=== PATIENT | female | born 1985 | race Caucasian/White ===

== ENCOUNTER 2016-05-09 21:30 | Emergency (ER) | payer OTHER ==
[2016-05-09] MEDS ORDERED: ACETAMINOPHEN TAB 650MG DOSE (2X325MG) As Ordered ONE (22:16)
--- NOTE | 2016-05-09 22:29 | EDDOCDS ---
Physician Documentation [facility] Name: Caridad Duke Age: 30 yrs Sex: Female : 1985 Arrival Date: 05/09/2016 Time: 21:30 Bed 11 Private MD: Other - Complete Info On Cds Disposition: 05/09/16 22:04 Discharged to Home/Self Care. Impression: Unspecified sprain of left foot. - Condition is Stable. - Discharge Instructions: Elastic Bandage and RICE, Foot Sprain. - Medication Reconciliation, Local Pharmacy Hours form. - Follow up: Private Physician; When: 4 - 5 days; Reason: Recheck today's complaints, Continuance of care. - Problem is new. - Symptoms are unchanged. - Notes: elevate foot limit ambulation Historical: - Allergies: no known allergies; - Home Meds: 1. Prilosec 40 mg Oral cpDR 1 cap once daily 2. Vitamin Oral tab 1 tab once daily - PMHx: none; - PSHx: none; - Social history: Smoking status: Patient states was never smoker of tobacco. No barriers to communication noted, The patient speaks fluent Lao. - Family history: Not pertinent. - : The pt / caregiver states he / she is not on anticoagulants. Home medication list is obtained from the patient. - Exposure Risk Screening:: None identified. 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 5 in. (165.10 cm) (R); Pain 7/10; 22:25 BP 128 / 71; Pulse 80; Resp 16; Temp 98.0; Pulse Ox 99% on R/A; Pain 3/10; cf2 21:32 Body Mass Index 27.29 (74.39 kg, 165.10 cm) gr2 MDM: 21:47 Foot, (AP\E\lat) Ordered. EDMS 21:59 Acetaminophen Tablet 650 mg PO once ordered. ke 22:06 Derrick Wrap ordered. ke 22:27 Financial registration complete. zo Administered Medications: 22:18 Drug: Acetaminophen 650 mg [acetaminophen 325 mg tablet (2 tabs)] Route: PO; cf2 22:27 Follow up: Response: Pt left department before re-evaluation is appropriate cf2 Signatures: Dispatcher [employer] EDDenis Holbrook, BEAN WEIGHER BEAN WEIGHERAparna Hammonds Christina, RN RN cf2 Lolis Pa RN RN tm5 MTDD
--- NOTE | 2016-05-09 22:29 | EDDOCDS ---
Nurse's Notes [facility] Name: Caridad Duke Age: 30 yrs Sex: Female : 1985 Arrival Date: 05/09/2016 Time: 21:30 Bed 11 Private MD: Other - Complete Info On Cds Diagnosis: Unspecified sprain of left foot Presentation: 05/09 21:34 Presenting complaint: Patient states: per pt she was sent in for foot x-ray but was tm5 sent with the wrong order for wrong foot so x-ray wouldn't let pt sign in for foot x-ray so pt decided to sign into the ER for left foot x-ray, pt tripped & rammed left foot into the floor, no obvious deformity, pt coming from [facility]. Adult Sepsis Screening: The patient does not have new or worsening altered mentation. Patient's respiratory rate is less than 22. Systolic blood pressure is greater than 100. Patient has a qSOFA score of 0- Negative Sepsis Screen. Suicide/Homicide risk assessment- the patient denies having any suicidal and/or homicidal ideations and does not present with any other emotional, behavioral or mental health complaints. 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 Transition of care: patient was not received from another setting of care. 21:34 Acuity: JOSHUA Level 4 tm5 21:34 Method Of Arrival: Walkin/Carried/Asstd tm5 Triage Assessment: 21:37 General: Appears in no apparent distress, Behavior is appropriate for age, cooperative. tm5 Pain: Location: left foot Pain currently is 7 out of 10 on a pain scale. Pt Declines HIV testing. Neurological: Level of Consciousness is awake, alert, Oriented to person, place, time. Respiratory: Airway is patent Respiratory effort is even, unlabored, Respiratory pattern is regular, symmetrical. Derm: Skin is pink, warm & dry. Musculoskeletal: Reports pain in left foot. 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 Prilosec 40 mg Oral cpDR 1 cap once daily 2. Vitamin Oral tab 1 tab once daily - PMHx: none; - PSHx: none; - Social history: Smoking status: Patient states was never smoker of tobacco. No barriers to communication noted, The patient speaks fluent Divehi. - Family history: Not pertinent. - : The pt / caregiver states he / she is not on anticoagulants. Home medication list is obtained from the patient. - Exposure Risk Screening:: None identified. Screenin:38 Screening information is obtained from the patient. Fall risk: No risks identified. tm5 Assistance ADL's: requires no assistance with activities of daily living. Abuse/DV Screen: The patient / caregiver reports he/she is: not in a situation that causes fear, pain or injury. Nutritional screening: No deficits noted. Advance Directives: Currently, there is a health care proxy, Sebastian. There is no active DNR order. home support is adequate. Assessment: 22:25 General: Appears in no apparent distress, comfortable, Behavior is appropriate for age, cf2 cooperative. Pain: Location: left foot. Musculoskeletal: No deficits noted. Musculoskeletal: Circulation, motion, and sensation intact Capillary refill < 3 seconds Range of motion intact in all extremities. No deformity noted Swelling absent Tenderness present in left foot. Injury Description: pt fell. Vital Signs: 21:32 BP 122 / 60; Pulse 86; Resp 18 S; Temp 98.6(O); Pulse Ox 98% on R/A; Weight 74.39 kg gr2 (R); Height 5 ft. 5 in. (165.10 cm) (R); Pain 7/10; 22:25 BP 128 / 71; Pulse 80; Resp 16; Temp 98.0; Pulse Ox 99% on R/A; Pain 3/10; cf2 21:32 Body Mass Index 27.29 (74.39 kg, 165.10 cm) gr2 Vitals: 21:32 Log In Time: May 09, 2016 at 21:32. gr2 ED Course: 21:32 Patient visited by Victorino Haley. gr2 21:32 Other - Complete Info On Cds is Private Physician. gr2 21:32 Patient moved to Waiting gr2 21:34 Patient visited by Victorino Haley. gr2 21:34 Patient moved to Pre RCE gr2 21:36 Triage Initiated tm5 21:39 Char Smalls, SONNY is Primary Nurse. tm5 21:39 Patient moved to 11 tm5 21:40 Denis Cordoba FNP is [facility]. ke 21:40 Patient visited by Denis Cordoba FNP. ke 21:40 Patient visited by Denis Cordoba FNP. ke 21:48 Primary Nurse role handed off by Char Smalls RN cf2 21:48 Marlen Walker,RN is Primary Nurse. cf2 21:48 Patient visited by Marlen Walker,SONNY. cf2 22:25 Patient visited by Marlen Walker RN. cf2 22:25 The patient / caregiver is instructed regarding the plan of care and ED course. cf2 22:25 No IV's were initiated during this patient's visit. No procedures done that require cf2 assistance. 22:28 Glenis Hernandez MD is Attending Physician. cf2 Administered Medications: 22:18 Drug: Acetaminophen 650 mg [acetaminophen 325 mg tablet (2 tabs)] Route: PO; cf2 22:27 Follow up: Response: Pt left department before re-evaluation is appropriate cf2 Order Results: There are currently no results for this order. Outcome: 22:04 Discharge ordered by Provider. ke 22:25 Discharge Assessment: Patient awake, alert and oriented x 3. No cognitive and/or cf2 functional deficits noted. Patient verbalized understanding of disposition instructions. Patient awake and alert. Oriented to person, place and time. patient administered narcotics - no. The following High Risk Discharge criteria are identified: None. Discharged to home ambulatory. Condition: stable. Discharge instructions given to patient, Instructed on discharge instructions, Demonstrated understanding of instructions, Pt was receptive of discharge instructions/ teaching. No special radiology studies were completed. Property :Personal belongings accompany Pt. 22:28 Patient left the ED. cf2 Signatures: Denis Cordoba FNP [facility] Victorino Peters gr2 Marlen Walker RN RN cf2 Lolis Pa RN RN tm5 MTDD
--- NOTE | 2016-05-10 07:58 | REP ---
The bone density, osseous, joint and soft tissue structures of the foot are normal. There is no fracture or dislocation identified on the limited study. IMPRESSION: No fracture or dislocation. Unreviewed
--- NOTE | 2016-05-11 23:29 | EDDOCDS ---
Physician Documentation [facility] Name: Caridad Duke Age: 30 yrs Sex: Female : 1985 Arrival Date: 05/09/2016 Time: 21:30 Bed 11 Private MD: Other - Complete Info On Cds Disposition: 05/09/16 22:04 Discharged to Home/Self Care. Impression: Unspecified sprain of left foot. - Condition is Stable. - Discharge Instructions: Elastic Bandage and RICE, Foot Sprain. - Medication Reconciliation, Local Pharmacy Hours form. - Follow up: Private Physician; When: 4 - 5 days; Reason: Recheck today's complaints, Continuance of care. - Problem is new. - Symptoms are unchanged. - Notes: elevate foot limit ambulation Historical: - Allergies: no known allergies; - Home Meds: 1. Prilosec 40 mg Oral cpDR 1 cap once daily 2. Vitamin Oral tab 1 tab once daily - PMHx: none; - PSHx: none; - Social history: Smoking status: Patient states was never smoker of tobacco. No barriers to communication noted, The patient speaks fluent Syriac. - Family history: Not pertinent. - : The pt / caregiver states he / she is not on anticoagulants. Home medication list is obtained from the patient. - Exposure Risk Screening:: None identified. 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 5 in. (165.10 cm) (R); Pain 7/10; 22:25 BP 128 / 71; Pulse 80; Resp 16; Temp 98.0; Pulse Ox 99% on R/A; Pain 3/10; cf2 21:32 Body Mass Index 27.29 (74.39 kg, 165.10 cm) gr2 MDM: 21:47 Foot, (AP\E\lat) Ordered. EDMS 21:59 Acetaminophen Tablet 650 mg PO once ordered. ke 22:06 Derrick Wrap ordered. ke 22:27 Financial registration complete. zo 22:39 [facility] Payment Agreement was scanned into [employer] and attached to record. zo 05/10 18:09 T-Sheet-- Draft Copy was scanned into [employer] and attached to record. klr Administered Medications: 05/09 22:18 Drug: Acetaminophen 650 mg [acetaminophen 325 mg tablet (2 tabs)] Route: PO; cf2 22:27 Follow up: Response: Pt left department before re-evaluation is appropriate cf2 Signatures: Dispatcher [employer] EDMS Denis Cordoba FNP FNP ke Olin, Zoeann zo Redder, Kathie klr Familetti-Gonzalez, ChristinaRN RN cf2 Lolis PaRN RN tm5 The chart was reviewed and I authenticate all verbal orders and agree with the evaluation and treatment provided.Attachments: 22:39 [facility] Payment Agreement zo 05/10 18:09 T-Sheet-- Draft Copy klr Chart Complete MTDD
--- NOTE | 2016-05-11 23:29 | EDDOCDS ---
Physician Documentation [facility] Name: Caridad Duke Age: 30 yrs Sex: Female : 1985 Arrival Date: 05/09/2016 Time: 21:30 Bed 11 Private MD: Other - Complete Info On Cds Disposition: 05/09/16 22:04 Discharged to Home/Self Care. Impression: Unspecified sprain of left foot. - Condition is Stable. - Discharge Instructions: Elastic Bandage and RICE, Foot Sprain. - Medication Reconciliation, Local Pharmacy Hours form. - Follow up: Private Physician; When: 4 - 5 days; Reason: Recheck today's complaints, Continuance of care. - Problem is new. - Symptoms are unchanged. - Notes: elevate foot limit ambulation Historical: - Allergies: no known allergies; - Home Meds: 1. Prilosec 40 mg Oral cpDR 1 cap once daily 2. Vitamin Oral tab 1 tab once daily - PMHx: none; - PSHx: none; - Social history: Smoking status: Patient states was never smoker of tobacco. No barriers to communication noted, The patient speaks fluent Yakut. - Family history: Not pertinent. - : The pt / caregiver states he / she is not on anticoagulants. Home medication list is obtained from the patient. - Exposure Risk Screening:: None identified. 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 5 in. (165.10 cm) (R); Pain 7/10; 22:25 BP 128 / 71; Pulse 80; Resp 16; Temp 98.0; Pulse Ox 99% on R/A; Pain 3/10; cf2 21:32 Body Mass Index 27.29 (74.39 kg, 165.10 cm) gr2 MDM: 21:47 Foot, (AP\E\lat) Ordered. EDMS 21:59 Acetaminophen Tablet 650 mg PO once ordered. ke 22:06 Derrick Wrap ordered. ke 22:27 Financial registration complete. zo 22:39 [facility] Payment Agreement was scanned into [employer] and attached to record. zo 05/10 18:09 T-Sheet-- Draft Copy was scanned into [employer] and attached to record. klr Administered Medications: 05/09 22:18 Drug: Acetaminophen 650 mg [acetaminophen 325 mg tablet (2 tabs)] Route: PO; cf2 22:27 Follow up: Response: Pt left department before re-evaluation is appropriate cf2 Signatures: Dispatcher [employer] EDMS Denis Cordoba FNP FNP ke Olin, Zoeann zo Redder, Kathie klr Familetti-Gonzalez, ChristinaRN RN cf2 Lolis PaRN RN tm5 The chart was reviewed and I authenticate all verbal orders and agree with the evaluation and treatment provided.Attachments: 22:39 [facility] Payment Agreement zo 05/10 18:09 T-Sheet-- Draft Copy klr Chart Complete MTDD
--- NOTE | 2016-05-11 23:29 | EDDOCDS ---
Nurse's Notes [facility] Name: Caridad Duke Age: 30 yrs Sex: Female : 1985 Arrival Date: 05/09/2016 Time: 21:30 Bed 11 Private MD: Other - Complete Info On Cds Diagnosis: Unspecified sprain of left foot Presentation: 05/09 21:34 Presenting complaint: Patient states: per pt she was sent in for foot x-ray but was tm5 sent with the wrong order for wrong foot so x-ray wouldn't let pt sign in for foot x-ray so pt decided to sign into the ER for left foot x-ray, pt tripped & rammed left foot into the floor, no obvious deformity, pt coming from [facility]. Adult Sepsis Screening: The patient does not have new or worsening altered mentation. Patient's respiratory rate is less than 22. Systolic blood pressure is greater than 100. Patient has a qSOFA score of 0- Negative Sepsis Screen. Suicide/Homicide risk assessment- the patient denies having any suicidal and/or homicidal ideations and does not present with any other emotional, behavioral or mental health complaints. Status: Patient is not a swimming pool serviceperson or dependent. Transition of care: patient was not received from another setting of care. 21:34 Acuity: JOSHUA Level 4 tm5 21:34 Method Of Arrival: Walkin/Carried/Asstd tm5 Triage Assessment: 21:37 General: Appears in no apparent distress, Behavior is appropriate for age, cooperative. tm5 Pain: Location: left foot Pain currently is 7 out of 10 on a pain scale. Pt Declines HIV testing. Neurological: Level of Consciousness is awake, alert, Oriented to person, place, time. Respiratory: Airway is patent Respiratory effort is even, unlabored, Respiratory pattern is regular, symmetrical. Derm: Skin is pink, warm & dry. Musculoskeletal: Reports pain in left foot. 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 Prilosec 40 mg Oral cpDR 1 cap once daily 2. Vitamin Oral tab 1 tab once daily - PMHx: none; - PSHx: none; - Social history: Smoking status: Patient states was never smoker of tobacco. No barriers to communication noted, The patient speaks fluent Frisian. - Family history: Not pertinent. - : The pt / caregiver states he / she is not on anticoagulants. Home medication list is obtained from the patient. - Exposure Risk Screening:: None identified. Screenin:38 Screening information is obtained from the patient. Fall risk: No risks identified. tm5 Assistance ADL's: requires no assistance with activities of daily living. Abuse/DV Screen: The patient / caregiver reports he/she is: not in a situation that causes fear, pain or injury. Nutritional screening: No deficits noted. Advance Directives: Currently, there is a health care proxy, Sebastian. There is no active DNR order. home support is adequate. Assessment: 22:25 General: Appears in no apparent distress, comfortable, Behavior is appropriate for age, cf2 cooperative. Pain: Location: left foot. Musculoskeletal: No deficits noted. Musculoskeletal: Circulation, motion, and sensation intact Capillary refill < 3 seconds Range of motion intact in all extremities. No deformity noted Swelling absent Tenderness present in left foot. Injury Description: pt fell. Vital Signs: 21:32 BP 122 / 60; Pulse 86; Resp 18 S; Temp 98.6(O); Pulse Ox 98% on R/A; Weight 74.39 kg gr2 (R); Height 5 ft. 5 in. (165.10 cm) (R); Pain 7/10; 22:25 BP 128 / 71; Pulse 80; Resp 16; Temp 98.0; Pulse Ox 99% on R/A; Pain 3/10; cf2 21:32 Body Mass Index 27.29 (74.39 kg, 165.10 cm) gr2 Vitals: 21:32 Log In Time: May 09, 2016 at 21:32. gr2 ED Course: 21:32 Patient visited by Victorino Haely. gr2 21:32 Other - Complete Info On Cds is Private Physician. gr2 21:32 Patient moved to Waiting gr2 21:34 Patient visited by Victorino Haley. gr2 21:34 Patient moved to Pre RCE gr2 21:36 Triage Initiated tm5 21:39 Char Smalls, SONNY is Primary Nurse. tm5 21:39 Patient moved to 11 tm5 21:40 [facility]. ke 21:40 Patient visited by Denis Cordoba FNP. ke 21:40 Patient visited by Denis Cordoba FNP. ke 21:48 Primary Nurse role handed off by Char Smalls RN cf2 21:48 Marlen Walker,SONNY is Primary Nurse. cf2 21:48 Patient visited by Marlen Walker,SONNY. cf2 22:25 Patient visited by Marlen Walker RN. cf2 22:25 The patient / caregiver is instructed regarding the plan of care and ED course. cf2 22:25 No IV's were initiated during this patient's visit. No procedures done that require cf2 assistance. 22:28 Glenis Hernandez MD is Attending Physician. cf2 22:39 [facility] Payment Agreement was scanned into [employer] and attached to record. zo 05/10 08:33 Foot, (AP\E\lat) Returned. EDMS 18:09 T-Sheet-- Draft Copy was scanned into [employer] and attached to record. klr Administered Medications: 05/09 22:18 Drug: Acetaminophen 650 mg [acetaminophen 325 mg tablet (2 tabs)] Route: PO; cf2 22:27 Follow up: Response: Pt left department before re-evaluation is appropriate cf2 Order Results: Radiology Order: Foot, (AP\E\lat) Test: Foot, (AP\E\lat) REASON FOR EXAMINATION: Trauma; ; The bone density, osseous, joint and soft tissue structures of the foot are; normal. There is no fracture or dislocation identified on the limited study.; ; IMPRESSION:; No fracture or dislocation.; ; ; ; Unreviewed; Outcome: 22:04 Discharge ordered by Provider. ke 22:25 Discharge Assessment: Patient awake, alert and oriented x 3. No cognitive and/or cf2 functional deficits noted. Patient verbalized understanding of disposition instructions. Patient awake and alert. Oriented to person, place and time. patient administered narcotics - no. The following High Risk Discharge criteria are identified: None. Discharged to home ambulatory. Condition: stable. Discharge instructions given to patient, Instructed on discharge instructions, Demonstrated understanding of instructions, Pt was receptive of discharge instructions/ teaching. No special radiology studies were completed. Property :Personal belongings accompany Pt. 22:28 Patient left the ED. cf2 Signatures: Dispatcher [employer] EDMS Denis Cordoba, PULL OUT OPERATOR PULL OUT OPERATOR Aparna Solano Gainslee gr2 Zeina Sahu ChristinaRN RN cf2 Lolis Pa RN RN tm5 Chart Complete MTDD
== END 2016-05-09 22:28 | disposition home or self-care (01) ==
LOC: M ED 21:30
DX: O9A.213 Injury, poisoning and certain other consequences of external causes complicating pregnancy, third trimester (principal); S93.602A Unspecified sprain of left foot, initial encounter; X50.9XXA Other and unspecified overexertion or strenuous movements or postures, initial encounter; Y92.019 Unspecified place in single-family (private) house as the place of occurrence of the external cause; Y93.89 Activity, other specified; Y99.8 Other external cause status; Z3A.33 33 weeks gestation of pregnancy; Z79.899 Other long term (current) drug therapy

== ENCOUNTER 2016-06-16 16:21 | Outpatient (CLI) | payer OTHER ==
[~2016-06-16] VITALS: Ht 165.1 cm; Wt 78.0 kg
[2016-06-16 16:35] VITALS: BP 118/57
[2016-06-16] MEDS ORDERED: PRIL20CA9 PO (16:39)
[2016-06-16] MEDS ORDERED: PRENTAB9 PO (16:39)
== END 2016-06-16 17:38 | disposition home or self-care (01) ==
LOC: M LDO 16:21
PROVIDERS: ATTEND Student in an Organized Health Care Education/Training Program
DX: O26.893 Other specified pregnancy related conditions, third trimester (principal); Z3A.38 38 weeks gestation of pregnancy

== ENCOUNTER 2016-06-18 23:59 | Outpatient (CLI) | payer OTHER ==
[~2016-06-18] VITALS: Ht 165.1 cm; Wt 79.0 kg
[~2016-06-18 23:59] MED LIST: PRENTAB9 PO; PRIL20CA9 PO
[2016-06-19 00:10] VITALS: BP 120/67
== END 2016-06-19 00:40 | disposition home or self-care (01) ==
LOC: M LDO 23:59
PROVIDERS: ATTEND Obstetrics & Gynecology
DX: O47.1 False labor at or after 37 completed weeks of gestation (principal); Z3A.39 39 weeks gestation of pregnancy